=== PATIENT | male | born 1935 | race Caucasian/White ===

== ENCOUNTER 2020-05-03 16:23 | Outpatient (REF) | payer SELFPAY ==
[2020-05-03 17:43] LABS: Abs Immature Grans 0.04 10^3/uL (0.0-0.06); Absolute Basophil Count 0.05 10^3/uL (0.0-0.2); Absolute Eosinophil Count 0.23 10^3/uL (0.0-0.7); Absolute Monocyte Count 0.57 10^3/uL (0.1-0.8); Absolute Neutrophil Count 6.43 10^3/uL (1.2-6.7); Basophils % 0.6; Eosinophils % 2.8; HCT 34.8 % (40.0-50.0); HGB 11.6 g/dL (13.5-17.5); Immature Grans % 0.5; Lymphocytes % 10.9; MCH 29.7 pg (27.0-33.0); MCHC 33.3 % (32.0-36.0); MPV 10.1 fL (8.0-11.0); Monocytes % 6.9; Neutrophils % 78.3; Nucleated RBC 0 %; Platelet Count 547 10^3/uL (130-400); RBC 3.91 10^6/uL (4.36-5.78); RDW 13.9 % (11.8-14.1); RDW-SD 45.2 fL; WBC 8.22 10^3/uL (4.4-10.8)
[2020-05-03 18:03] LABS: ALT 16 U/L (16-63); AST 26 U/L (15-37); Albumin 2.2 g/dL (3.4-5.0); Alkaline Phosphatase 103 U/L (46-116); Anion Gap 6.5 mmol/L (3-11); BUN 12 mg/dL (7-18); Bilirubin, Direct 0.3 mg/dL (0.0-0.2); Bilirubin, Total 0.7 mg/dL (0.2-1.0); CO2 31.5 mmol/L (21.0-32.0); CREATININE 0.6 mg/dL (0.70-1.30); Calcium 8.9 mg/dL (8.5-10.1); Chloride 97 mmol/L (98-107); Glucose 123 mg/dL (74-106); Potassium 3.7 mmol/L (3.5-5.1); Sodium 135 mmol/L (136-145); Total Protein 6.3 g/dL (6.4-8.2)
== END 2020-05-03 16:24 | disposition home or self-care (01) ==
LOC: LBN 16:23
PROVIDERS: Visit Provider Family Medicine
DX: I10 Essential (primary) hypertension (principal); M62.81 Muscle weakness (generalized); G71.09 Other specified muscular dystrophies
CPT/HCPCS: 80048; 80076; 83735; 85025

== ENCOUNTER 2020-06-07 17:29 | Outpatient (REF) | payer MEDICARE, OTHER, SELFPAY ==
[2020-06-07 21:15] LABS: Bilirubin Negative (Negative); Blood Moderate (Negative); Clarity Cloudy (Clear); Glucose Negative (Negative); Ketones Negative (Negative); Leukocyte Esterase Large (Negative); Nitrite Positive (Negative); Urobilinogen 0.2 EU/dL (Up TO 0.2)
[2020-06-07 21:35] LABS: WBC >50 HPF (0-5)
[2020-06-07 21:36] LABS: C & S Indicated? C&S Done As Ordered
== END 2020-06-07 17:30 | disposition home or self-care (01) ==
LOC: LBN 17:29
PROVIDERS: Visit Provider Family Medicine
DX: R50.9 Fever, unspecified (principal); R82.998 Other abnormal findings in urine
CPT/HCPCS: 87077; 81003; 81015; 87086; 87186